=== PATIENT | female | born 1980 | race Caucasian/White ===

== ENCOUNTER 2019-08-31 07:09 | Inpatient (IN) ==
[2019-08-31] MEDS ORDERED: ONDANSETRON 4 MG/2 ML VIAL IV PRN (07:55)
[2019-08-31] MEDS ORDERED: MEPERIDINE 25 MG/1 ML VIAL IV PRN (07:55)
[2019-08-31] MEDS ORDERED: OXYTOCIN/LR 20 UNIT/1,000 ML BAG IV SCH ×2 (08:00→16:05)
[2019-08-31] MEDS ORDERED: LACTATED RINGERS 1,000 ML IV SCH ×2 (08:00→10:30)
[2019-08-31 08:38] LABS: Basophils # 0.1 10*3/uL (0.0-0.2); Basophils % 0.7 % (0.0-0.8); Eosinophils # 0.1 10*3/uL (0.0-0.87); Hematocrit 29.1 VOL% (35.7-47.0); Hemoglobin 9.3 GM/DL (12.0-16.0); Immature Granulocytes Absolute 0.13 #; Lymphocytes # 2.5 10*3/uL (1.4-4.0); Lymphocytes % 19.1 % (21.3-54.2); Mean Corpuscular Volume 92.4 FL (87-102); Mean Platelet Volume 11.3 FL (9.6-12.0); Monocytes % 6.5 % (1.7-12.7); Neutrophils % 71.7 % (38.7-73.9); Platelet Count 201 T/CUMM (130-400); Red Blood Count 3.15 MC/CUMM (3.8-5.5); White Blood Count 13.1 T/CUMM (4-12)
[2019-08-31] MEDS ORDERED: PROMETHAZINE 25 MG/1 ML VIAL IM ONE (10:14)
[2019-08-31] MEDS ORDERED: LACTATED RINGERS 1,000 ML IV ONE (10:14)
[2019-08-31] MEDS ORDERED: ePHEDrine 50 MG/ML AMP IV PRN (10:14)
[2019-08-31] MEDS ORDERED: hydrOXYzine HCL 25 MG/1 ML VIAL IM PRN (10:14)
[2019-08-31] MEDS ORDERED: diphenhydrAMINE 50 MG/1 ML VIAL IV PRN ×2 (10:14)
[2019-08-31] MEDS ORDERED: NALOXONE 0.4 MG/ML VIAL IV PRN (10:14)
[2019-08-31] MEDS ORDERED: LACTATED RINGERS 250 ML IV PRN (10:14)
[2019-08-31] MEDS ORDERED: LACTATED RINGERS 500 ML IV ONE (10:14)
[2019-08-31] MEDS ORDERED: CITRIC ACID/SODIUM CITRATE 30 ML UDCUP PO ONE (10:18)
[2019-08-31] MEDS ORDERED: FAMOTIDINE 20 MG/2 ML VIAL IV ONE (10:18)
[2019-08-31] MEDS ORDERED: fentaNYL 2 MCG/ROPIV 0.2% EPID 100 ML EPIDURAL SCH (10:30)
[2019-08-31 11:50] LABS: Apearance,Urine CLEAR (Clear); Bilirubin,Urine Negative (Negative); Blood, Urine Negative (Negative); Glucose,Urine (UA) Negative (Negative); Ketones,Urine Negative (Negative); Mucus,Urine Occasional /LPF (Occasional); Nitrite,Urine Negative (Negative); Protein,Urine Negative; Squamous Epithelial Cell,Urine Occasional /HPF (0-10); Urine Color Colorless (Yellow); Urine Specific Gravity 1.004 (1.001-1.035); Urine Urobilinogen < 2.0 EU/DL (0.2-1.0)
[2019-08-31] MEDS ORDERED: miSOPROStoL 200 MCG TABLET ONE (14:35)
[2019-08-31] MEDS ORDERED: TRANEXAMIC ACID 1,000 MG/10 ML VIAL ONE (14:35)
[2019-08-31] MEDS ORDERED: METHYLERGONOVINE 0.2 MG/1 ML AMP ONE (14:36)
[2019-08-31] MEDS ORDERED: CARBOPROST TROMETHAMINE 250 MCG/ML AMP IM ONE (14:36)
[2019-08-31] MEDS ORDERED: OXYTOCIN/LR 20 UNIT/1,000 ML BAG IV ONE ×3 (14:36→18:15)
[2019-08-31] MEDS ORDERED: WITCH HAZEL PADS 100/JAR TOP PRN (17:54)
[2019-08-31] MEDS ORDERED: BISACODYL 10 MG SUPP RECTAL PRN (17:54)
[2019-08-31] MEDS ORDERED: MEASLES/MUMPS/RUBELLA VACCINE 0.5 ML VIAL SUBCUT ONE (17:54)
[2019-08-31] MEDS ORDERED: ACETAMINOPHEN 325 MG TABLET PO PRN (17:54)
[2019-08-31] MEDS ORDERED: LANOLIN 50% CREAM 0.3 OZ TUBE TOP PRN (17:54)
[2019-08-31] MEDS ORDERED: BENZOCAINE 20%/MENTHOL 0.5% SPRAY 56 GM CAN TOP PRN (17:54)
[2019-08-31] MEDS ORDERED: HYDROCORTISONE 2.5% RECTAL CREAM 30 GM TUBE TOP PRN (17:54)
[2019-08-31] MEDS ORDERED: oxyCODONE/ACETAMINOPHEN 5-325 MG TABLET PO PRN (17:54)
[2019-08-31] MEDS ORDERED: RHO(D) IMMUNE GLOBULIN 300 MCG SYRINGE IM ONE (17:54)
[2019-08-31] MEDS ORDERED: DIPH/TET/ACEL PERT BOOSTER VACCINE 0.5 ML VIAL IM ONE (17:54)
[2019-08-31] MEDS: IBUPROFEN 800 MG TABLET PO PRN (19:25)
[2019-08-31] MEDS: DOCUSATE SODIUM 100 MG CAPSULE PO SCH (23:57)
[2019-09-01] MEDS: oxyCODONE/ACETAMINOPHEN 5-325 MG TABLET PO PRN ×3 (01:23→22:20)
[2019-09-01 05:54] LABS: Basophils # 0.1 10*3/uL (0.0-0.2); Basophils % 0.7 % (0.0-0.8); Eosinophils # 0.2 10*3/uL (0.0-0.87); Eosinophils % 0.9 % (0.00-10.9); Hematocrit 25.9 VOL% (35.7-47.0); Hemoglobin 8.3 GM/DL (12.0-16.0); Immature Granulocytes % 0.9 %; Immature Granulocytes Absolute 0.16 #; Lymphocytes # 2.9 10*3/uL (1.4-4.0); Lymphocytes % 16.9 % (21.3-54.2); Mean Corpuscular Volume 91.8 FL (87-102); Mean Platelet Volume 11.1 FL (9.6-12.0); Monocytes % 7.7 % (1.7-12.7); Neutrophils % 72.9 % (38.7-73.9); Platelet Count 172 T/CUMM (130-400); Red Blood Count 2.82 MC/CUMM (3.8-5.5)
[2019-09-01] MEDS ORDERED: MEPERIDINE 25 MG/1 ML VIAL IM ONE (08:40)
[2019-09-01] MEDS: DOCUSATE SODIUM 100 MG CAPSULE PO SCH ×2 (09:00→20:40)
[2019-09-01 10:06] LABS: Basophils # 0.1 10*3/uL (0.0-0.2); Basophils % 0.7 % (0.0-0.8); Eosinophils # 0.1 10*3/uL (0.0-0.87); Eosinophils % 0.8 % (0.00-10.9); Hematocrit 28.1 VOL% (35.7-47.0); Hemoglobin 9.1 GM/DL (12.0-16.0); Immature Granulocytes % 1.3 %; Immature Granulocytes Absolute 0.21 #; Lymphocytes % 12.1 % (21.3-54.2); Mean Corpuscular HGB Conc 32.4 GM/DL (32-36); Mean Corpuscular Volume 90.4 FL (87-102); Mean Platelet Volume 10.9 FL (9.6-12.0); Monocytes % 6.5 % (1.7-12.7); Neutrophils % 78.6 % (38.7-73.9); Platelet Count 171 T/CUMM (130-400); Red Blood Count 3.11 MC/CUMM (3.8-5.5); Red Cell Distribution Width 13.2 % (9.3-17.3); White Blood Count 16.6 T/CUMM (4-12)
[2019-09-01] MEDS: IBUPROFEN 800 MG TABLET PO PRN ×2 (13:28→22:20)
[2019-09-01] MEDS: FERROUS SULFATE 325 MG TABLET PO SCH (20:40)
[2019-09-02] MEDS: oxyCODONE/ACETAMINOPHEN 5-325 MG TABLET PO PRN (04:32)
[2019-09-02] MEDS: FERROUS SULFATE 325 MG TABLET PO SCH (08:43)
[2019-09-02] MEDS: IBUPROFEN 800 MG TABLET PO PRN (08:43)
[2019-09-02] MEDS: DOCUSATE SODIUM 100 MG CAPSULE PO SCH (08:45)
[2019-09-02 16:11] VITALS: BP 142/83
== END 2019-09-02 18:10 | disposition home or self-care (01) | DRG 807 ==
LOC: N.LDOUT 07:09 → N.LD 07:11 → N.OB 17:53
PROVIDERS: ADMIT Obstetrics & Gynecology; ATTEND Obstetrics & Gynecology